=== PATIENT | male | born 1975 | race Caucasian/White ===

== ENCOUNTER 2019-12-02 14:30 | Outpatient (RCR) | payer OTHER, SELFPAY ==
--- NOTE | 2019-09-13 15:57 | PTOPEVAL ---
PHYSICAL THERAPY EVALUATION AND PLAN OF CARE 09-13-2019 The PT evaluation was completed for the diagnosis of vertigo. The plan of treatment is scheduled for 1-2 x/week for 5 weeks. Thank you for referring Ld Caal to [facility] [place]. Please review, sign, date and return this plan of care [place]. I agree with and certify that the following plan of care is medically necessary. Referring Physician Date Attending Provider: Dr. Donal Buckley *PT Outpatient Evaluation Start: 09/13/19 14:44 Document 09/13/19 14:30 DAVIDA (Rec: 09/13/19 15:57 DAVIDA [id number]) Therapy Assessment Status Assessment Status Assessment Status Evaluation Outpatient Past Medical History Past Medical History Source of Past Medical History Patient Neurological History Hx Other Neurological Disorders Yes: headaches daily ~ 30 min duration Cardiovascular History Hx Hypercholesterolemia Yes: meds Hx Hypertension Yes: borderline- no meds Respiratory History Hx Other Respiratory Disorders Yes: allergies/sinus issues; smokes Gastrointestinal History Hx Gastrointestinal Disorders No Significant History Genitourinary History Hx Kidney Stones Yes Musculoskeletal History Hx Other Musculoskeletal Disorders Yes: B carpal tunnel surgery Endocrine History Hx Diabetes Yes: new diagnosis Other History Hx Other Surgeries Yes: kindey stone Evaluation Information Problem Diagnosis vertigo Onset May 2018 Previous Treatments Previous Treatments For This Problem previous treatment here Nov to Dec 2018 Prior Level of Function Activity Level (Last 3 Months) Occupation not working- due to vertigo; prev stand/[place] Hand Dominance Right Activity of Daily Living Ability Independent Indoor/Home Mobility Independent Community Mobility Independent Stairs Ability Independent Functional Cognition (Planning, Shopping Independent , Taking Medications) Cooking Yes Cleaning Yes Laundry Yes Shopping Yes Driving No Medications Home Meds (Include: OTC, RX, Vitamins, topiramate for headaches; Herbals, Dose, Route,and Frequency) atorvastatin- cholesterol, Query Text:Home Med Entries Will No metformin-diabetes; tumeric, Longer Recall From Past Visits. Home supplement for kidney stones, Meds Must Be Re-entered With Each Visit. tylenol PRN; claritin- about every 4 days is not driving due to dizziness Home Setting Home Type House Living Situation
--- NOTE | 2019-10-13 15:43 | PCPTNOTE ---
The patient treatment was not able to be completed on 10/13/19 due to having increased dizziness, unsteadiness requiring assistance to walk back to the department, nausea, sweating, and shakiness. Also, reported that he had to have his Mom side puller and stop on their way home after his last session due to increased symptoms. Patient was started on a new medicine Trulicity, on 10/09/19, after talking with Ld and looking up some of the side effects, wondering if, the increase of symptoms could be related. Patient is going to call the Dr. Will plan to continue treatment per plan of care.
--- NOTE | 2019-10-18 16:23 | PTOPEVAL ---
PHYSICAL THERAPY RE-EVALUATION 10-18-2019 Thank you for referring Ld Caal to [facility] [place] [place]. Refer to the Clinical Summary below for his improvements from PT treatments. Physical Therapy is scheduled to continue? 2 x/week for 4 weeks. Please review, sign, date and return this plan of care [place]. I agree with and certify that the following plan of care is medically necessary. Referring Physician Date Attending Provider: Dr. Donal Buckley *PT Outpatient Re-Evaluation Document 10/18/19 15:37 DAVIDA (Rec: 10/18/19 16:22 DAVIDA [id number]) Subjective Information Ld reports: doing better, Query Text:As Reported By Patient/ medication changed for Family diabetes- was taking trulocity , had problems, now on insulin and changing diet; blood sugar was 150 today, had been up to 243; today- lightheaded , less than has been; has improved since started therapy --can walk farther, take 10-12 steps, before balance goes off; recovery rate is faster with all activity- turn around , lease picker off floor; have not had any bad days where cannot get out of bed; Symptoms: lightheaded, rated 5 /10;more nausea- stomach not right; car sickness, problems concentrating; feels less severity of symptoms; after doing exercises- have headache ; feel like body has inertia to keep going after stopping; when lean over to tie shoes, feel like going to fall forward; blue vision changes;want to continue PT Pain Assessment Timing of Pain Assessment Timing of Pain Assessment Assessment Self Report Self Report Pain Level 0 Pain Score Pain Score 0: Self Report Balance Assessment Time Up Go (TUG) Timed Up and Go Test (TUG) (Seconds) 17 Assistive Devices Cane, Straight Comments loss of balance with turning- took steps to catch himself Gait Assessment Gait Assessment Ambulation Assistive Devices Cane Ambulation Distance 300 Query Text:(Feet) Ambulation Destination In Gym Ambulation Surface Level Ambulation Ability Independent Cues Needed For Ambulation Non
--- NOTE | 2019-11-16 08:34 | PTOPEVAL ---
PHYSICAL THERAPY RE-EVALUATION AND UPDATED PLAN OF CARE 11-15-2019 Refer to the clinical summary below for the changes in his status since PT treatment was initiated. PT is scheduled to continue treatment 2x/week for 4 weeks. Thank you for referring Ld Caal to [facility].? Please review, sign, date and return this updated plan of care [facility]. I agree with and certify that the following plan of care is medically necessary. Referring Physician Date Attending Provider: Bryan Joy M.D. *PT Outpatient Re-Evaluation Document 11/15/19 15:21 DAVIDA (Rec: 11/15/19 16:07 DAVIDA [id number]) Subjective Information Ld reports: is able to walk Query Text:As Reported By Patient/ farther, but still have loss Family of balance; problems with turning- get dizzy; dizzy when ride in car--still not driving; not dizzy all time, but feel off balance when walking; doing exercises at home- from here and doing eccliptical for exercise about 6 minutes; cannot bend over to tie shoes; have not had any falls; have not had any headaches in the past 3 days--keeping house closed and allergies not acting up; blood sugar staying stable 90-134; have not had any days where in bed all day ; use cane when going out, and rarely use it in the house- unless having a bad day, about every 4-5 days; have lost 10#, watching diet and trying to do more activity ; is very frustrated with all this and it still going on ; Dizziness Handicap Index score 76/100. He wants to continue therapy. Pain Assessment Timing of Pain Assessment Timing of Pain Assessment Assessment Self Report Self Report Pain Level 0 Pain Score Pain Score 0: Self Report Balance Assessment Time Up Go (TUG) Timed Up and Go Test (TUG) (Seconds) 14 Assistive Devices None 5 Time Sit to Stand Time in Seconds 27 5 Time Sit to Stand Comments increase spinning of room; Query Text:Normative Data: If Greater wide base support; use of Than 15 Seconds, 74% Increase Risk for hands PRN on legs Recurrent Falls
--- NOTE | 2019-11-25 11:58 | PCPTNOTE ---
pt called and canceled today's appt due to his mother is ill.
--- NOTE | 2019-12-03 16:40 | PCPTNOTE ---
This treatment is being continued on visit number [id number]. Please see documentation on both accounts to view progress. Completed interventions, outcomes, and problems have been marked as Inactive to facilitate the copying of the Care plan routine for recurring accounts.
== END 2019-12-03 13:00 | disposition home or self-care (01) ==
LOC: ANHPT 14:30
PROVIDERS: PCP Family Medicine; Visit Provider Family Medicine
DX: R42 Dizziness and giddiness (principal)
CPT/HCPCS: 97110; 97161

== ENCOUNTER 2020-01-25 13:30 | Outpatient (RCR) | payer OTHER, SELFPAY ==
--- NOTE | 2019-12-03 16:43 | PCPTNOTE ---
This treatment is being continued from visit number [id number] Please see documentation on both accounts to view progress. .
--- NOTE | 2019-12-13 13:26 | PTOPEVAL ---
PHYSICAL THERAPY RE-EVALUATION AND UPDATED PLAN OF CARE 12-13-2019 Refer to the clinical summary section below. Ld is scheduled to continue therapy? 1 x/week for 6 weeks. Please review, sign, date and return this plan of care [place]. I agree with and certify that the following plan of care is medically necessary. Referring Physician Date Attending Provider: Dr. Buckley *PT Outpatient Evaluation Document 12/13/19 12:30 DAVIDA (Rec: 12/13/19 13:26 DAVIDA [id number]) Subjective Information Ld reports: did not sleep Query Text:As Reported By Patient/ well last night-- worrying Family about things at home and appointments; have some sinus issues and problems; had bad day few days ago--felt like was in an earthquake, unsteady and could not walk without losing balance; when trying to lean over and tie my shoe, passed out and fell forward; am walking about 1/4 mile with dog for some exercise; can read for about 30 min, then words jump around ; when watch TV, if camera moves too fast have problems and cannot watch it; is not driving; is not working; has not had any falls--able to catch himself and not fall. He is doing his home exercises and wants to continue therapy. Pain Assessment Timing of Pain Assessment Timing of Pain Assessment Assessment Self Report Self Report Pain Level 0 Pain Score Pain Score 0: Self Report Balance Assessment Time Up Go (TUG) Timed Up and Go Test (TUG) (Seconds) 16 Assistive Devices None Comments loss of balance with turning- took steps to catch himself 5 Time Sit to Stand Time in Seconds 26 5 Time Sit to Stand Comments report little light headed ; Query Text:Normative Data: If Greater wide base support; did not use Than 15 Seconds, 74% Increase Risk for hands; Recurrent Falls Gait Assessment 2 Minute Walk Total Distance Walked (feet) 280 2 Minute Walk Gait Speed Score (feet/ 2.33 second) Number of Breaks Required 0 2 Minute Walk Test Comments loss of balance 3 times- used side-step strategy to regain
--- NOTE | 2020-01-25 14:14 | PTOPEVAL ---
PHYSICAL THERAPY DISCHARGE 01-25-2020 Refer to the clinical summary below for his discharge summary and comparison to the last reevaluation. Thank you for referring Ld Caal to [facility].? Please review, sign, date and return this discharge [place]. I agree with and certify that the following plan of care is medically necessary. Referring Physician Date Attending Provider: Dr. 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 the car- turns still affect him and after get out of car, have problems with balance; have not driven ; still go slow with head movements due to feel dizzy; can move eyes only without any problems; feel like getting stronger and balance is better , but still dizziness; taking topamax daily for headaches, have had minor headaches 1x/ day, last a few hours; taking claritin daily; issues with sleeping, cannot stay asleep, only about 4-5 hours per night; no falls ; have not had any passing out episodes; is walking for fitness; Pain Assessment Timing of Pain Assessment Timing of Pain Assessment Assessment Self Report Self Report Pain Level 0 Pain Score Pain Score 0: Self Report Balance Assessment Time Up Go (TUG) Timed Up and Go Test (TUG) (Seconds) 12 Assistive Devices None Comments loss of balance with turning- able to catch himself; held arms out to the side; 5 Time Sit to Stand Time in Seconds 15 5 Time Sit to Stand Comments wide base support; did not use Query Text:Normative Data: If Greater hands; Than 15 Seconds, 74% Increase Risk for Recurrent Falls Gait Assessment 2 Minute Walk Total Distance Walked (feet) 350 2 Minute Walk Gait Speed Score (feet/ 2.91 second) Number of Breaks Required 0 2 Minute Walk Test Comments arms held out to the side; R/L deviation of steps; Vestibular Evaluation Vestibular Testing Vestibular Testing Comments -Dizziness Handicap Index
--- NOTE | 2020-01-25 16:13 | PCPTNOTE ---
at today's session, discussed d/c with pt; he agreed, but little nervous about being d/c ; discussed with him that he had improved with one 1x/week and is doing well doing his HEP and progressing his activity. He can call at any time and when he sees the dr in about 5 weeks, if need to continue PT, will need a new order.
== END 2020-01-26 08:42 | disposition home or self-care (01) ==
LOC: ANHPT 13:30
PROVIDERS: PCP Family Medicine; Visit Provider Family Medicine
DX: R42 Dizziness and giddiness (principal)
CPT/HCPCS: 97110